=== PATIENT | male | born 1985 | race African-American/Black ===

== ENCOUNTER 2024-01-03 17:41 | Emergency (ER) | payer OTHER ==
[~2024-01-03] VITALS: Ht 185.4 cm; Wt 86.8 kg
[2024-01-03 17:54] VITALS: BP 130/80; PULSE 56; RESP 18; TEMP 98
[2024-01-03] MEDS ORDERED: HYDR-4062 PO (19:11)
[2024-01-03] MEDS ORDERED: IBUP-1554 PO (19:11)
== END 2024-01-03 19:34 | disposition home or self-care (01) ==
LOC: EMS 17:53
DX: S22.32XA Fracture of one rib, left side, initial encounter for closed fracture (principal); F17.210 Nicotine dependence, cigarettes, uncomplicated; W22.8XXA Striking against or struck by other objects, initial encounter; Y93.89 Activity, other specified; Y92.89 Other specified places as the place of occurrence of the external cause; Y99.8 Other external cause status
CPT/HCPCS: 71100; 99283

== ENCOUNTER 2024-01-10 12:29 | Emergency (ER) | payer OTHER ==
[~2024-01-10] VITALS: Ht 185.4 cm; Wt 87.7 kg
[~2024-01-10 12:29] MED LIST: HYDR-4062 PO; IBUP-1554 PO
[2024-01-10] MEDS: LIDOCAINE 5% TRANSDERMAL PATCH TD ONE (14:54)
[2024-01-10] MEDS ORDERED: LIDO700A15 TP (15:16)
[2024-01-10 15:30] VITALS: BP 143/77; PULSE 95; RESP 16
[2024-01-15] MEDS ORDERED: LIDO700A15 TP (18:59)
== END 2024-01-10 15:45 | disposition home or self-care (01) ==
LOC: EMS 12:29
DX: S22.32XA Fracture of one rib, left side, initial encounter for closed fracture (principal); F17.210 Nicotine dependence, cigarettes, uncomplicated; Y08.89XA Assault by other specified means, initial encounter; Y93.89 Activity, other specified; Y92.89 Other specified places as the place of occurrence of the external cause; Y99.8 Other external cause status
CPT/HCPCS: 99283; G0238